=== PATIENT | female | born 1965 | race Caucasian/White ===

== ENCOUNTER 2020-12-10 11:57 | Day surgery (SDC) | payer BC ==
[~2020-12-10] VITALS: Ht 167.6 cm; Wt 70.5 kg
--- NOTE | 2020-12-10 14:04 | NUR ---
12/10/20 1404 Marie Durant 1359-PATIENT ARRIVED TO PACU ON 3L NC RR EVEN AWAKE, DROWSY PATIENT DENIES PAIN OR NAUSEA LYING LEFT LATERAL. PLACED ON 2L NC ABDOMEN SOFT ENCOURAGED TO PASS GAS. IVF INFUSING.
--- NOTE | 2020-12-11 09:46 | OR ---
[facility] [address] [place], [place] [address] Signed DATE OF OPERATION: 12/10/2020 SURGEON: Ash Rivera MD PREOPERATIVE DIAGNOSIS: History of polyps x3 2016 ([place]). POSTOPERATIVE DIAGNOSES: 1. Small polyp of proximal descending colon. 2. Mild cecitis. PROCEDURE: Total colonoscopy to cecum with cold snare polypectomy x1 and biopsy of cecum and ileum. ANESTHESIA: Intravenous sedation, fentanyl 150 mcg, Versed 6 mg. INDICATION: This 55-year-old white woman is a patient of CRISTY Pat and here for consideration of colonoscopy. She underwent colonoscopy in 2015 at which time, she had three polyps excised. This was in [place], [place]. She is here for surveillance colonoscopy. She has no symptoms of bleeding, diarrhea, or constipation and no family history of colon cancer. She understands risk of bleeding, infection, and perforation related to colonoscopy and wished to proceed. FINDINGS: The prep was adequate. Complete colonoscopy was undertaken to the cecum. Colon was rather lengthy and tortuous, but full intubation of the cecum was accomplished as well as intubation of the ileum. The ileum appeared normal. The cecum had mild inflammation, certainly no ulceration. The remaining colon was normal except for a sessile polyp at the proximal descending colon which was excised with cold snare technique. Biopsies were additionally taken of the rectum in addition to the cecum and ilium. DESCRIPTION OF PROCEDURE: The patient was brought to the endoscopy suite and placed in the lateral decubitus position, given intravenous sedation to the point of slurred speech and nystagmus. Full cardiopulmonary monitoring was maintained. Digital rectal examination was normal. Electronically Signed By: ASH RIVERA MD 12/11/20 0946 PATIENT NAME: JAKUB CRUZ OPERATIVE REPORT DATE OF : 63 REPORT #: [id number] PHYSICIAN: ASH RIVERA MD PCP: THERESE SUBRAMANIAN PAC REPORT IS CONFIDENTIAL AND NOT TO BE RELEASED WITHOUT AUTHORIZATION [facility] [address] [place], [place] [address] Signed An Olympus video colonoscope was passed in the rectum and manipulated throughout the colon. At the area of the splenic flexure, a small sessile polyp was noted, this was excised with cold snare technique and passed for pathology. The scope was then advanced beyond this ultimately requiring abdominal wall stabilization to allow for intubation of the right colon. Ultimately, the cecum was fully intubated. Irrigation was undertaken and mild cecitis was noted. The appendiceal orifice was normal. The ileocecal valve was rather slit-like, but with various manipulations, could be intubated. Mucosa of the ileum appeared normal. It was biopsied nevertheless. The scope was withdrawn and biopsies then taken of the cecum. Careful withdrawal of the scope showed no sign of other abnormality other than the initially excised polyp of the proximal descending colon. The sigmoid was normal. Retroflexed view was normal of the rectum. The scope was removed and the patient was taken to the recovery room in good condition. CONCLUDING DIAGNOSES: 1. Small polyp at proximal descending colon, completely excised. 2. Mild inflammation of cecum, otherwise uncertain. PLAN: Recommend repeat colonoscopy in 5 years based on the polyp, sooner if symptoms should develop. We will review the pathology report of the ileal, rectal and cecal biopsies as well. She will return to the ongoing care of Tehrese Subramanian, PA otherwise. MD NIRAV Rasheed/MODL /[id number] cc: Therese Subramanian PA-C Copies: THERESE SUBRAMANIAN Electronically Signed By: ASH RIVERA MD 12/11/20 0946 PATIENT NAME: JAKUB CRUZ OPERATIVE REPORT DATE OF : 63 REPORT #: [id number] PHYSICIAN: ASH RIVERA MD PCP: THERESE SUBRAMANIAN REPORT IS CONFIDENTIAL AND NOT TO BE RELEASED WITHOUT AUTHORIZATION [address] [address] Signed ~ Electronically Signed By: ASH RIVERA MD 12/11/20 0946 PATIENT NAME: JAKUB CRUZ OPERATIVE REPORT DATE OF : 63 REPORT #: [id number] PHYSICIAN: ASH RIVERA MD PCP: THERESE SUBRAMANIAN PAC REPORT IS CONFIDENTIAL AND NOT TO BE RELEASED WITHOUT AUTHORIZATION
--- NOTE | 2020-12-11 18:05 | PATH ---
[facility] [address] [place], [place] [address] Signed SPECIMEN(S): A DESCENDING PROXIMAL POLYP SPECIMEN(S): B CECUM BIOPSY SPECIMEN(S): C TERMINAL ILEUM BIOPSY SPECIMEN SOURCE: A. DESCENDING PROXIMAL POLYP B. CECUM BIOPSY C. TERMINAL ILEUM BIOPSY CLINICAL HISTORY: Personal history of colon polyps / polyp x 1, mild cecitis MICROSCOPIC DESCRIPTION: Histologic sections of all submitted blocks are examined by light microscopy. These findings, together with the gross examination, support the pathologic diagnosis. FINAL PATHOLOGIC DIAGNOSIS: A. Colon, proximal descending, polyp, polypectomy: - Hyperplastic polyp. - Negative for dysplasia or malignancy. B. Colon, cecum, biopsy: - Colonic mucosa with no histopathologic abnormality. - Negative for active, chronic, or microscopic colitis. - Negative for dysplasia or malignancy. C. Terminal ileum, biopsy: - Focal minimal active ileitis. - Negative for granulomas, dysplasia, or malignancy. NAL:cml:C2NR GROSS DESCRIPTION: Three specimens are received in three containers, labeled "CS." A. The specimen, labeled "CS, proximal descending colon polyp," is received in formalin and consists of one miranda soft tissue fragment that measures 0.2 cm in greatest dimension. The specimen is entirely submitted in cassette (A1). B. The specimen, labeled "CS, cecum biopsy," is received in formalin and consists of two miranda soft tissue fragment(s) that measure 0.2 cm in greatest dimension. The specimen is entirely submitted in cassette (B1). C. The specimen, labeled "CS, terminal ileum biopsy," is received in formalin and consists of two miranda soft tissue fragment(s) that measure 0.2-0.3 cm in PATIENT NAME: JAKUB CRUZ PATHOLOGY DATE OF : 63 REPORT #: [id number] PHYSICIAN: ROSEMARIE LOBO PCP: GELY MONTANO PAC REPORT IS CONFIDENTIAL AND NOT TO BE RELEASED WITHOUT AUTHORIZATION [facility] [address] [place] [address] Signed greatest dimension. The specimen is entirely submitted in cassette (C1). JS (under the direct supervision of a pathologist) The Gross Description was prepared using a voice recognition system. The report was reviewed for accuracy; however, sound-alike word errors, addition and/or deletions may occur. If there is any question about this report, please contact Client Services. PERFORMING LABORATORY: The technical component was performed by [facility] [address] (Rn Informatics: Dara Encarnacion MD; CLIA# [id number]). Professional interpretation was performed by [facility], [address] [address] (CLIA# [id number]). Diagnostician: Erica Lutz MD Pathologist Electronically Signed 12/11/2020 Copies: ~ PATIENT NAME: JAKUB CRUZ PATHOLOGY DATE OF : 63 REPORT #: [id number] PHYSICIAN: ROSEMARIE LOBO PCP: GELY MONTANO PAC REPORT IS CONFIDENTIAL AND NOT TO BE RELEASED WITHOUT AUTHORIZATION
== END 2020-12-10 14:35 | disposition home or self-care (01) ==
LOC: OPS 11:57 → DS 11:57 → OPS 13:00
PROVIDERS: ATTEND Surgery
PROC: 0DBB8ZX Excision of Ileum, Via Natural or Artificial Opening Endoscopic, Diagnostic (ICD-10-PCS; 2020-12-10)
PROC: 0DBM8ZX Excision of Descending Colon, Via Natural or Artificial Opening Endoscopic, Diagnostic (ICD-10-PCS; 2020-12-10)
PROC: 0DBH8ZX Excision of Cecum, Via Natural or Artificial Opening Endoscopic, Diagnostic (ICD-10-PCS; principal; 2020-12-10 13:00)
DX: Z12.11 Encounter for screening for malignant neoplasm of colon (principal); K63.5 Polyp of colon; K52.9 Noninfective gastroenteritis and colitis, unspecified; Z86.010 Personal history of colon polyps; Z78.0 Asymptomatic menopausal state; Z90.09 Acquired absence of other part of head and neck
CPT/HCPCS: 99153; G0500; J2250; J3010; J7121